=== PATIENT | female | born 1965 | race Caucasian/White ===

== ENCOUNTER → 2019-06-19 15:56 | Outpatient (CLI) | payer BC, SELFPAY ==
--- NOTE | ~2019-06-19 | MM_ITS ---
EXAMINATION: MM screening [facility] BI w [facility] HISTORY: Screening mammogram TECHNIQUE: Craniocaudal and mediolateral oblique 3-D tomosynthesis images were obtained and synthetic 2-D images were generated. CAD analysis was submitted and interpreted. COMPARISON: No prior mammogram is available for comparison at this institution. BREAST PARENCHYMAL COMPOSITION: There are scattered areas of fibroglandular density. FINDINGS: At least several scattered right breast masses are suggested, measuring up to approximately 12 mm maximal dimension. Diagnostic right mammogram and right breast ultrasound examination are joann mmended. Otherwise there is no evidence of suspicious mass, calcification, or architectural distortion to sugg est malignancy in either breast. There has been no other suspicious interval change. IMPRESSION: 1. Right breast masses 2. Diagnostic right mammogram and right breast ultrasound examination are recommended. BI-RADS Category 0: Incomplete: Needs additional imaging evaluation. Reviewed, dictated and finalized at location A. IMPRESSION: 1. Right breast masses 2. Diagnostic right mammogram and right breast ultrasound examination are recom mended. BI-RADS Category 0: Incomplete: Needs additional imaging evaluation.
== END ==
PROVIDERS: PCP Family Medicine; Visit Provider Obstetrics & Gynecology
DX: Z12.31 Encounter for screening mammogram for malignant neoplasm of breast (principal); R92.8 Other abnormal and inconclusive findings on diagnostic imaging of breast
CPT/HCPCS: 77063; 77067

== ENCOUNTER 2019-06-26 08:15 | Outpatient (CLI) | payer BC, SELFPAY ==
--- NOTE | ~2019-06-26 | MMUS_ITS ---
EXAMINATION: MM diagnostic mammo unilat RT, US breast RT limited HISTORY: Right breast masses on screening mammogram TECHNIQUE: Additional 3-D tomosynthesis images of the right breast were performed and synthetic 2-D i mages were generated. CAD analysis was submitted and interpreted. High resolution limited right breas t ultrasound was performed. COMPARISON: 06/19/2019 FINDINGS: MAMMOGRAPHIC FINDINGS: There is a 12 mm oval, obscured, low density mass in the anterior third of the breast at the 8:00 loc ation 3 cm from the nipple. There is a 10 mm round mass in the region of the axilla. No definite ayan tional masses persist with spot compression. No suspicious architectural distortion or calcification are identified. ULTRASOUND: There is a 1.3 cm cyst at the 9:00 location 3 cm from the nipple corresponding to the anterior breast mass. A benign-appearing lymph node is seen at the 10:00 location 9 cm from the nipple corresponding to the far posterior/axillary mass identified. IMPRESSION: 1. No mammographic or sonographic evidence of malignancy. 2. Recommend routine screening mammography in one year. BI-RADS Category 2: Benign finding(s). Reviewed, dictated and finalized at location A. IMPRESSION: 1. No mammographic or sonographic evidence of malignancy. 2. Recommend routine screening mammography in one year. BI-RADS Category 2: Benign finding(s).
== END 2019-06-26 08:16 ==
LOC: MICIMG 08:15
PROVIDERS: Visit Provider Obstetrics & Gynecology
DX: R92.8 Other abnormal and inconclusive findings on diagnostic imaging of breast (principal)
CPT/HCPCS: 76642; 77065

== ENCOUNTER 2019-10-12 09:25 | Emergency (ER) | payer BC, SELFPAY ==
[2019-10-12 09:48] VITALS: BP 139/81; PULSE 83; RESP 16; TEMP 37.3; O2SAT 99
--- NOTE | 2019-10-12 10:06 | ED.GENADULT ---
HPI - General Adult General Chief complaint: Extremity Injury, Lower Stated complaint: Foot pain Time Seen by Provider: 10/12/19 10:07 Source: patient and RN notes reviewed Mode of arrival: ambulatory Limitations: no limitations History of Present Illness HPI narrative: This is a 54 years old female presents to the office for an evaluation of foot pain for four to five days. Pain described as cramping. Pain woke up her up from sleep; which she took Mg and K pills with no relief. Denies injury/trauma prior to pain. She is diabetic with last A1C was 10 (about six months ago). Admits to history of intermittent charley horse/leg cramp but not as bad as this time. Denies history of neuropathy. Denies history of DVT. She is not a smoker. Denies recent surgery. Related Data Home Medications Medication Instructions Recorded Confirmed glimepiride [Amaryl] 1 mg PO DAILY 10/12/19 10/12/19 levonorgestrel [Mirena] 1 device INTRAUTERINE ONCE 10/12/19 10/12/19 metformin [Glucophage] 850 mg PO DAILY 10/12/19 10/12/19 methylphenidate HCl [Concerta] 36 mg PO DAILY 10/12/19 10/12/19 pantoprazole [Protonix] 40 mg PO DAILY 10/12/19 10/12/19 simvastatin [Zocor] 20 mg PO DAILY 10/12/19 10/12/19 Allergies Allergy/AdvReac Type Severity Reaction Status Date / Time mold Allergy Unknown ITCHY Verified 10/12/19 10:01 Review of Systems Review of Systems: Narrative: CONSTITUTIONAL: Denies fever ENT: Denies congestion CARDIOVASCULAR: Denies chest pain, palpitation RESPIRATORY: Denies dyspnea GASTROINTESTINAL: Denies abdominal pain, nausea, vomiting, diarrhea. SKIN: Denies rash/lesions MUSCULOSKELETAL:Reports right leg pain after leg cramp that she experienced a couple days ago. Pain began the sold of her foot and travel up her calf and as high as hip regions. NEUROLOGIC: Denies lightheaded/numbness/dizziness. All other systems reviewed are negative, except as documented in HPI. [facility] Past Medical History Medical History (Updated 10/12/19 @ 11:21 by DEX Ortiz) Diabetic acidosis, type II History of fatty infiltration of liver HLD (hyperlipidemia) Social History Social History Gender identity (if verbalized by the patient): Female Comments At time of signature, I agree with nursing past medical, surgical, social and family history. There is no relevant family history pertinent to the presenting complaint. Exam Narrative: Exam Narrative: GENERAL: This is a well-nourished, well-developed patient, in no apparent distress. CARDIOVASCULAR: Regular rate and rhythm without murmurs, gallops, or rubs. RESPIRATORY: Clear to auscultation. Breath sounds equal bilaterally. No wheezes, rales, or rhonchi. GASTROINTESTINAL: Abdomen soft, non-tender, nondistended. Bowel sounds are active. No hepato-splenomegaly, or palpable masses. No guarding. SKIN: warm, intact with no suspicious lesions or rash, good texture and turgor. NEURO: awake, alert, and oriented to person, place and time. There were no obvious focal neurologic abnormalities. Steady gait EXTREMITIES: Normal range of motion. No edema. No calf tenderness. Negative Homans sign bilaterally. No callus/corn noted. Right heel noted tenderness with palpation. Joints grossly intact. Skin intact. BACK: Nontender without deformity or crepitance. No flank tenderness. Negat SLRs. Dominick Coma Scale Eye Opening: Spontaneous 4 Collyer Coma Scale Motor: Obeys Commands 6 Dominick Coma Scale Verbal: Oriented 5 Course Vital Signs Vital signs: Vital Signs Temperature 99.2 F 10/12/19 09:48 Pulse Rate 83 10/12/19 09:48 Respiratory Rate 16 10/12/19 09:48 Blood Pressure 139/81 10/12/19 09:48 Pulse Oximetry 99 10/12/19 09:48 Temperature 99.2 F 10/12/19 09:48 Pulse Rate 83 10/12/19 09:48 Respiratory Rate 16 10/12/19 09:48 Blood Pressure 139/81 10/12/19 09:48 Pulse Oximetry 99 10/12/19 09:48 Medical D
== END 2019-10-12 10:34 | disposition home or self-care (01) ==
PROVIDERS: Emergency Provider Nurse Practitioner; PCP Family Medicine
DX: M79.671 Pain in right foot (principal); E11.10 Type 2 diabetes mellitus with ketoacidosis without coma; Z79.84 Long term (current) use of oral hypoglycemic drugs; E78.5 Hyperlipidemia, unspecified
CPT/HCPCS: 99213; G0463

== ENCOUNTER 2020-03-05 08:45 | Outpatient (CLI) | payer BC, SELFPAY ==
--- NOTE | ~2020-03-05 | XR_ITS ---
EXAMINATION: XR knee LT min 4V DATE: 03/05/2020 09:15 INDICATION: Left knee pain. TECHNIQUE: 4 views of left knee were obtained. COMPARISON: None. FINDINGS: Bone alignment is normal. No fracture. There is mild tricompartmental osteoarthritis. There is a moderate-sized knee joint effusion. IMPRESSION: 1. Mild left knee osteoarthritis. 2. Moderate-sized left knee joint effusion. Reviewed, dictated and finalized at location B. TEAM COORDINATOR SCHEDULER
== END 2020-03-05 08:46 ==
PROVIDERS: PCP Family Medicine; Visit Provider Family Medicine
DX: M17.12 Unilateral primary osteoarthritis, left knee (principal); M25.462 Effusion, left knee
CPT/HCPCS: 73564

== ENCOUNTER 2022-09-16 19:16 | Emergency (ER) | payer BC, SELFPAY ==
--- NOTE | ~2022-09-16 | XR_ITS ---
EXAMINATION: XR chest 1V portable Exam Date/Time: 09/16/2022 20:07 CDT HISTORY: leg pain, DIABETES, HTN Comparison: None. RESULT: Lines, tubes, and devices: None. Lungs and pleura: Clear. Cardiomediastinal silhouette: Normal. Other: No acute osseous or upper abdominal finding. IMPRESSION: No acute cardiopulmonary process. Reviewed, dictated and finalized at location K.
[2022-09-16 19:33] VITALS: BP 160/99; PULSE 94; RESP 18; TEMP 36.3; O2SAT 100
--- NOTE | 2022-09-16 19:42 | ED.EXTPRO ---
HPI - Extremity Problem General Chief complaint: Extremity Problem,Nontraumatic Stated complaint: possible blood clot R leg Time Seen by Provider: 09/16/22 19:39 Source: patient and family Mode of arrival: ambulatory Limitations: no limitations History of Present Illness HPI Narrative: Patient is 57 years old white female presented to the ED with right leg swelling and numbness started 3 days ago. 4 days ago patient had a lot of work at the [employer] with a lot of bending, lifting and kneeling down. She denies any trauma, fever, chills, nausea, vomiting, chest pain, shortness of breath. Related Data Home Medications Medication Instructions Recorded Confirmed levonorgestrel 21 mcg/24 hours (8 1 device intrauterine ONCE 10/12/19 10/12/19 yrs) 52 mg intrauterine device (Mirena) pantoprazole 40 mg tablet,delayed 40 mg PO DAILY 10/12/19 10/12/19 release (Protonix) simvastatin 20 mg tablet (Zocor) 20 mg PO DAILY 10/12/19 10/12/19 Allergies Allergy/AdvReac Type Severity Reaction Status Date / Time mold Allergy Unknown ITCHY Verified 09/16/22 19:36 Review of Systems Review of Systems: All systems reviewed & are unremarkable except as noted in HPI and below PMFSH Past Medical History Medical History Acid reflux Attention-deficit hyperactivity disorder, predominantly inattentive type Essential (primary) hypertension History of fatty infiltration of liver Hyperlipidemia, unspecified Personal history of colonic polyps Type 2 diabetes mellitus without complications Surgical History Surgical History History of rhinoplasty 1999 History of stress incontinence procedure using tension free vaginal tape 2010 Tubal ligation status 1995 Family History Family History Father Diabetes mellitus Heart disease Hypertension Mother Heart disease Hypertension Diabetes mellitus Daughter Rheumatoid arthritis Grandparent , Paternal grandfather age 50 of a heart attack Acute myocardial infarction Social History Social History Smoking status: Never smoker Gender identity (if verbalized by the patient): Female Exam Narrative: General appearance: Well-developed, well-nourished Skin: Normal color Neck: Supple, nontender Chest and respiratory: Airway patent, no respiratory distress, no accessory muscle use Heart: Regular rate/rhythm Abdomen: Soft, nontender, no organomegaly, quiet bowel sounds Vascular: Normal peripheral pulses, normal capillary refill. Musculoskeletal: Normal range of motion, nontender back, right lower extremity showed no edema, slight diffuse tenderness, no bruises, no rash Neurologic: Alert and oriented ?3, BASKET FILLER is normal as tested, no gross motor deficit, negative straight leg raising test Course Reevaluation(s) Reevaluation #1: No new changes compared to on arrival to the ED Date: 09/16/22 Time: 21:00 Vital Signs Vital signs: Vital Signs Temperature 36.3 C L 09/16/22 19:33 Pulse Rate 94 09/16/22 19:33 Respiratory Rate 18 09/16/22 19:33 Blood Pressure 160/99 H 09/16/22 19:33 Pulse Oximetry 100 09/16/22 19:33 Oxygen Delivery Room Air 09/16/22 19:33 Temperature 36.3 C L 09/16/22 19:33 Pulse Rate 94 09/16/22 19:33 Respiratory Rate 18 09/16/22 19:33 Blood Pressure 160/99 H 09/16/22 19:33 Pulse Oximetry 100 09/16/22 19:33 Oxygen Delivery Room Air 09/16/22 19:33 MDM - Extremity (Nontraumatic) MDM Narrative Medical decision
--- NOTE | 2022-09-16 19:43 | ECG_ITS ---
Measurements Intervals [place] Rate: 68 P: 3 SD: 164 QRS: 18 QRSD: 93 T: 22 QT: 390 QTc: 417 Interpretive Statements SINUS RHYTHM NORMAL ELECTROCARDIOGRAM NO PREVIOUS ECG AVAILABLE FOR COMPARISON Electronically Signed On 09-17-2022 8:17:39 CDT by Mesfin Laird M.D.
[2022-09-16 20:15] LABS: Basophils Absolute Auto 0.1 K/mm3 (0.0-0.1); Basophils Percent Auto 1.2 % (0.2-1.2); Eosinophils Absolute Auto 0.3 K/mm3 (0-0.3); Eosinophils Percent Auto 3.3 % (0-4.4); Hematocrit 40.3 % (37.0-47.0); Hemoglobin 13.4 g/dL (12.0-15.0); Immature Granulocyte Absolute 0.03 K/mm3 (0.00-0.031); Immature Granulocyte Percent A 0.3 % (0-0.5); Lymphocytes Absolute Auto 2.78 K/mm3 (0.9-3.2); Lymphocytes Percent Auto 30.4 % (18.3-44.2); Mean Corpuscular HGB Conc 33.3 g/dl (32-36); Mean Corpuscular Hemoglobin 29.6 pg (26-34); Mean Platelet Volume 10.6 fl (7.4-10.4); Monocytes Absolute Auto 0.6 K/mm3 (0.1-0.6); Monocytes Percent Auto 6.2 % (2.6-8.5); Neutrophils Absolute Auto 5.4 K/mm3 (1.3-6.7); Neutrophils Percent Auto 58.6 % (45.5-73.1); Platelet Count Result 301 k/mm3 (150-375); Red Blood Count 4.53 M/mm3 (4.2-5.4); Red Cell Distribution Width 12.4 % (11.5-14.5); White Blood Count 9.2 K/mm3 (4.5-10.0)
[2022-09-16 20:26] LABS: Alanine Aminotransferase 32 U/L (6-35); Albumin Level 3.9 g/dL (3.5-5.1); Alkaline Phosphatase 71 U/L (38-126); Anion Gap 5 mmol/L (8-16); Aspartate Amino Transferase 32 U/L (14-36); Bilirubin,Total 0.3 mg/dL (0.2-1.3); Blood Urea Nitrogen 16 mg/dL (7-17); Calcium 8.8 mg/dL (8.4-10.2); Carbon Dioxide 30 mmol/L (22-30); Chloride 99 mmol/L (98-107); Estimated CRCL calculation 96 ml/min; Estimated Glomerular Filt Rate > 60; Glucose 169 mg/dL (65-110); Potassium 3.7 mmol/L (3.4-5.0); Sodium 134 mmol/L (137-145)
[2022-09-16 20:31] LABS: D Dimer 0.31 ug/mL (<0.48)
[2022-09-16 20:34] LABS: NT Pro B Type Natriuretic Pept < 20 pg/mL (19.9-100)
[2022-09-16 21:20] VITALS: BP 145/90; PULSE 78; RESP 20; O2SAT 100
== END 2022-09-16 21:25 | disposition home or self-care (01) ==
PROVIDERS: Emergency Provider Emergency Medicine; PCP Family Medicine
DX: M79.604 Pain in right leg (principal); I10 Essential (primary) hypertension; E78.5 Hyperlipidemia, unspecified; E11.9 Type 2 diabetes mellitus without complications
CPT/HCPCS: 36415; 71045; 80053; 83880; 85025; 85380; 93005; 99283

== ENCOUNTER 2022-09-19 15:39 | Outpatient (CLI) | payer BC, SELFPAY ==
--- NOTE | ~2022-09-19 | XR_ITS ---
EXAM: XR lumbar spine min 4V DATE: 09/19/2022 16:29 HISTORY: M25.551 - Pain in right hip . COMPARISON: None available. FINDINGS: Mild lumbar scoliosis. IUD projecting over the pelvis. No pars defect. Exaggerated lumbar l ordosis. Incidental note of degenerative change at T9-10. Moderate disc space narrowing and marginal osteophytosis at L1-2. Mild disc space narrowing at L4-5. Mild marginal osteophytosis at L2-3 and L3- 4. Moderate facet arthropathy at L5-S1 bilaterally. 5 nonrib-bearing lumbar-type vertebral bodies. Pe dicles intact. Normal vertebral body alignment. Mild anterior wedge deformity at the thoracolumbar ju nction, presumably physiologic. No fracture or dislocation. Osteoarthritic changes in the bilateral S I joints. IMPRESSION: Multilevel lumbar degenerative disc disease, described above. Moderate facet arthropathy at L5-S1. Bilateral SI joint osteoarthritis. Reviewed, dictated and finalized at location K. IMPRESSION: Multilevel lumbar degenerative disc disease, described above. Moder ate facet arthropathy at L5-S1. Bilateral SI joint osteoarthritis.
--- NOTE | ~2022-09-19 | XR_ITS ---
EXAM: XR hip RT min 2V DATE: 09/19/2022 16:29 HISTORY: M25.551 - Pain in right hip . COMPARISON: None available. FINDINGS: Normal mineralization. No fracture or dislocation. No lytic or blastic lesion. Lumbar dege nerative disc disease and facet arthropathy. IUD projecting over the pelvis. Mild degenerative change s in the right SI joint, pubic symphysis, and right hip. No erosion or periosteal change. Soft tissue s within normal limits. IMPRESSION: Mild right hip and SI joint osteoarthritis. Mild osteitis pubis. Reviewed, dictated and finalized at location K.
== END 2022-09-19 15:40 ==
LOC: MICIMG 15:41
PROVIDERS: PCP Family Medicine; Visit Provider Family Medicine
DX: M16.11 Unilateral primary osteoarthritis, right hip (principal); M51.36 Other intervertebral disc degeneration, lumbar region; M47.818 Spondylosis without myelopathy or radiculopathy, sacral and sacrococcygeal region
CPT/HCPCS: 72110; 73502

== ENCOUNTER 2023-10-05 18:19 | Emergency (ER) | payer BC, SELFPAY ==
[2023-10-05] VITALS (30 sets, daily range): BP systolic 142–176; BP diastolic 79–90; PULSE 90–123; RESP 15–26; TEMP 36.6; O2SAT 94–100
--- NOTE | ~2023-10-05 | XR_ITS ---
EXAMINATION: XR chest 2V DATE: 10/05/2023 19:00 INDICATION: Jaw pain. Hypertension. TECHNIQUE: Frontal and lateral views of the chest were obtained. COMPARISON: Chest single view 09/16/2022 FINDINGS: There is no pneumonia, pleural effusion, or pneumothorax. The heart size is normal. IMPRESSION: 1. No acute cardiopulmonary disease. Reviewed, dictated and finalized at location E.
--- NOTE | 2023-10-05 18:22 | ECG_ITS ---
Test Date: 2023-10-05 18:25:46 Measurements Intervals [place] Rate: 117 P: 27 NC: 142 QRS: 3 QRSD: 87 T: 58 QT: 320 QTc: 447 Interpretive Statements SINUS TACHYCARDIA CONSIDER ANTERIOR INFARCT, AGE INDETERMINATE CONSIDER INFERIOR INFARCT, AGE INDETERMINATE BASELINE ARTIFACT- I, II, III, AVR, AVL, AVF, V1 ABNORMAL ECG No previous ECG available for comparison Electronically Signed On 10-05-2023 20:42:22 CDT by Sonny Aguilar D.O.
--- NOTE | 2023-10-05 18:56 | PC.NURSE ---
patient took (4) 81mg ASA prior to arrival
[2023-10-05 18:59] LABS: Basophils Absolute Auto 0.1 K/mm3 (0.0-0.1); Basophils Percent Auto 1.2 % (0.2-1.2); Eosinophils Absolute Auto 0.2 K/mm3 (0-0.3); Eosinophils Percent Auto 2.1 % (0-4.4); Hematocrit 41.3 % (37.0-47.0); Hemoglobin 14.3 g/dL (12.0-15.0); Immature Granulocyte Absolute 0.03 K/mm3 (0.00-0.031); Immature Granulocyte Percent A 0.3 % (0-0.5); Lymphocytes Absolute Auto 2.41 K/mm3 (0.9-3.2); Lymphocytes Percent Auto 26.4 % (18.3-44.2); Mean Corpuscular HGB Conc 34.6 g/dl (32-36); Mean Corpuscular Hemoglobin 30.4 pg (26-34); Mean Corpuscular Volume 87.9 fl (80-100); Mean Platelet Volume 10.8 fl (7.4-10.4); Monocytes Absolute Auto 0.5 K/mm3 (0.1-0.6); Monocytes Percent Auto 5.3 % (2.6-8.5); Neutrophils Absolute Auto 5.9 K/mm3 (1.3-6.7); Neutrophils Percent Auto 64.7 % (45.5-73.1); Platelet Count Result 290 k/mm3 (150-375); Red Cell Distribution Width 12.1 % (11.5-14.5); White Blood Count 9.1 K/mm3 (4.5-10.0)
[2023-10-05 19:09] LABS: Alanine Aminotransferase 29 U/L (6-35); Albumin Level 4.3 g/dL (3.5-5.1); Alkaline Phosphatase 72 U/L (38-126); Anion Gap 13 mmol/L (4-12); Aspartate Amino Transferase 34 U/L (14-36); Bilirubin,Total 0.4 mg/dL (0.2-1.3); Blood Urea Nitrogen 16 mg/dL (7-17); Calcium 9.2 mg/dL (8.4-10.2); Carbon Dioxide 23 mmol/L (22-30); Chloride 98 mmol/L (98-107); Estimated CRCL calculation 98 ml/min; Estimated Glomerular Filt Rate > 60; Glucose 314 mg/dL (65-110); Lipase 213 U/L (23-300); Potassium 3.5 mmol/L (3.4-5.0); Sodium 134 mmol/L (137-145)
[2023-10-05 19:10] LABS: Prothrombin Time 12.9 Seconds (11.1-14.7)
[2023-10-05 19:11] LABS: Partial Thromboplastin Time 24.1 Seconds (22.3-36.8)
[2023-10-05 19:20] LABS: Troponin I < 0.012 ng/mL (0.000-0.034)
--- NOTE | 2023-10-05 20:43 | ECG_ITS ---
Test Date: 2023-10-05 20:51:07 Measurements Intervals [place] Rate: 102 P: 12 ME: 151 QRS: 5 QRSD: 86 T: 32 QT: 343 QTc: 447 Interpretive Statements SINUS TACHYCARDIA CONSIDER ANTERIOR INFARCT, AGE INDETERMINATE CONSIDER INFERIOR INFARCT, AGE INDETERMINATE BASELINE ARTIFACT- I, II, III, AVR, AVL, AVF ABNORMAL ECG Compared to ECG 10/05/2023 18:25:46 HEART RATE HAS DECREASED Electronically Signed On 10-06-2023 06:42:04 CDT by Sonny Aguilar D.O.
[2023-10-05] MEDS: SODIUM CHLORIDE 0.9% IV 1,000 ML 999 ML IV CONT (20:57)
[2023-10-05] MEDS: KETOROLAC 30 MG/ML VIAL (*BKC) IV PUSH (20:57)
[2023-10-05] MEDS: ONDANSETRON INJ 4 MG/2 ML VIAL IV PUSH (20:57)
[2023-10-05 21:18] LABS: Troponin I < 0.012 ng/mL (0.000-0.034)
--- NOTE | 2023-10-05 22:04 | ED.GENADULT ---
HPI - General Adult General Chief complaint: Recheck/Abnormal Lab/Rx Stated complaint: high bp Time Seen by Provider: 10/05/23 19:03 History of Present Illness HPI narrative: Patient is a 58-year-old female who presents ER with headache. Aching. Associated with jaw discomfort. No fevers or chills or sweats. No trauma. Reports that she then starting a blood pressure and was becoming more elevated which made her concerned. No chest pain or chest pressure. No difficulty breathing. No additional concerns. Patient is diabetic. She missed a dose medication last night. Related Data Home Medications Medication Instructions Recorded Confirmed levonorgestrel 21 mcg/24 hr (up to 1 device intrauterine ONCE 10/12/19 08/01/23 8 years) 52 mg intrauterine device (Mirena) Allergies Allergy/AdvReac Type Severity Reaction Status Date / Time mold Allergy Unknown ITCHY Verified 10/05/23 18:24 Review of Systems Review of Systems: All systems reviewed & are unremarkable except as noted in HPI and below Constitutional: Constitutional: Reports no additional constitutional complaints ENT: Reports system reviewed and no additional complaints, except as documented Cardiovascular: Cardiovascular: Reports no additional cardiovascular complaints Respiratory: Respiratory: Reports no additional respiratory complaints Neurologic: Reports headache(s), Denies focal weakness and Denies numbness PMFSH Past Medical History Medical History Acid reflux Attention-deficit hyperactivity disorder, predominantly inattentive type Essential (primary) hypertension History of fatty infiltration of liver Hyperlipidemia, unspecified Personal history of colonic polyps Type 2 diabetes mellitus without complications Surgical History Surgical History History of rhinoplasty 1999 History of stress incontinence procedure using tension free vaginal tape 2010 Tubal ligation status 1995 Family History Family History Father Diabetes mellitus Heart disease Hypertension Mother Heart disease Hypertension Diabetes mellitus Daughter Rheumatoid arthritis Grandparent , Paternal grandfather age 50 of a heart attack Acute myocardial infarction Social History Social History (Updated 09/19/22 @ 14:43 by Alma Graham MA) Smoking status: Never smoker Alcohol intake: current Substance use: never Lack of Transportation: No Lack of Food: Never True Current Housing: I Have Housing Concerned About Future Housing: No Difficulty Paying Gas/Electric Bills: No Difficulty Paying for Meds: No Currently Unemployed: No Education: Trade/Vocational Certificate Difficulty w/ Childcare or Family Care: No Living arrangements: with family Occupation/Education: occupation Gender identity (if verbalized by the patient): Female Sexual Orientation (if Verbalized by the Patient): Straight or Heterosexual Spiritual care concerns: No Exam Narrative: GENERAL: Well-appearing, well-nourished, and in no acute distress. HEAD: Normocephalic, atraumatic. ENT: Mucous membranes moist. No dental abscess or tenderness. NECK: Supple. CHEST: Clear to auscultation. No respiratory distress. HEART: Regular rate and rhythm. Normal peripheral pulses. ABDOMEN: Soft, nontender, nondistended. EXTREMITIES: Normal range of motion. No edema. SKIN: Warm, dry, no rash. NEURO: . Alert and oriented x3. PSYCH: Normal mood and affect Course Course Emergency Course: Headache resolved with Toradol, viral panel negative. Labs normal with exception of elevated glucose. Appropriate discharge home. Vital Signs Vital signs: Vital Signs Temperature 97.9 F 10/05/23 18:20 Pulse Rate 123 H 10/05/23 18:20 Respiratory Rate 16 10/05/23 18:20 Blood Pressu
[2023-10-05 22:48] LABS: Influenza A QL RT-PCR Negative (Negative); Influenza B QL RT-PCR Negative (Negative); RSV RNA, RT-PCR Negative (Negative); SARS-CoV-2 RNA PCR Negative (Negative)
== END 2023-10-05 23:09 | disposition home or self-care (01) ==
PROVIDERS: Emergency Medicine; Emergency Provider Emergency Medicine; PCP Family Medicine
DX: R51.9 Headache, unspecified (principal); I10 Essential (primary) hypertension; E78.5 Hyperlipidemia, unspecified; E11.9 Type 2 diabetes mellitus without complications; K21.9 Gastro-esophageal reflux disease without esophagitis; Z97.5 Presence of (intrauterine) contraceptive device; Z86.010 Personal history of colon polyps; Z79.84 Long term (current) use of oral hypoglycemic drugs; Z79.85 Long-term (current) use of injectable non-insulin antidiabetic drugs; R00.0 Tachycardia, unspecified; R94.31 Abnormal electrocardiogram [ECG] [EKG]
CPT/HCPCS: 36415; 71046; 80053; 83690; 84484; 85025; 85610; 85730; 87637; 93005; 96361; 96374; 96375; 99284; J1885; J2405; J7030

== ENCOUNTER 2024-10-30 17:51 | Emergency (ER) | payer BC, SELFPAY ==
--- NOTE | 2024-10-30 17:55 | ED.FEMALEGU ---
HPI - Female Genitourinary General Chief complaint: Urogenital-Female Stated complaint: UTI Time Seen by Provider: 10/30/24 18:08 Source: patient Mode of arrival: ambulatory Limitations: no limitations History of Present Illness HPI Narrative: Corinne is a 59-year-old female patient presenting to the clinic today with complaints of possible UTI. She is reporting frequency and urgency with urination x10 days. Reports she was out of town last Monday when she develops symptoms and called her PCP and they sent her in a prescription for Bactrim for 7 days. States that this did not help her symptoms. Is also reporting some low back pain/side pain. Reports increased thirst. Denies any fevers, chills, body aches, or abdominal pain. Patient is diabetic. Related Data Allergies Allergy/AdvReac Type Severity Reaction Status Date / Time mold Allergy Unknown ITCHY Verified 10/30/24 17:59 Review of Systems Review of Systems: Pertinent positives per HPI. Patient denies any fever, chills, rash, headache, visual changes, dizziness, cough, runny nose, sore throat, shortness of breath, chest pain, palpitations, nausea, vomiting, diarrhea, constipation. [facility] Past Medical History Medical History Personal history of colonic polyps Acid reflux Attention-deficit hyperactivity disorder, predominantly inattentive type Hyperlipidemia, unspecified Essential (primary) hypertension Type 2 diabetes mellitus without complications History of fatty infiltration of liver Surgical History Surgical History History of stress incontinence procedure using tension free vaginal tape 2010 History of rhinoplasty 2000 Tubal ligation status 1995 Family History Family History Father Diabetes mellitus Heart disease Hypertension Mother Heart disease Hypertension Diabetes mellitus Daughter Rheumatoid arthritis Grandparent , Paternal grandfather age 50 of a heart attack Acute myocardial infarction Social History Social History Smoking status: Never smoker Alcohol intake: current Substance use: never Lack of Transportation: No Lack of Food: Never True Current Housing: I Have Housing Concerned About Future Housing: No Difficulty Paying Gas/Electric Bills: No Difficulty Paying for Meds: No Currently Unemployed: No Education: Trade/Vocational Certificate Difficulty w/ Childcare or Family Care: No Living arrangements: with family Occupation/Education: occupation Gender identity (if verbalized by the patient): Female Sexual Orientation (if Verbalized by the Patient): Straight or Heterosexual Spiritual care concerns: No Comments At the time of my signature, I reviewed and agree with the nursing past medical, surgical, social, and family history. There is no relevant family history pertinent to the patient complaint. Exam Narrative: General: Well-developed, well nourished, in no apparent distress. Head: Normocephalic, atraumatic. Cardio: Regular rate and rhythm, s1 and s2 normal, no murmur appreciated. Resp: Clear to auscultation bilaterally, no rhonchi, rales, wheezing or rubs. Abdomen: Soft, pliable, bowel sounds present in all quadrants, non-tender to palpation, no organomegly, no CVAT tenderness. Course Course Emergency Course: Portions of this record may have been created with voice recognition software. Level of Care: Express Care Visit Vital Signs Vital signs: Vital Signs Temperature 37.1 C 10/30/24 18:08 Pulse Rate 106 H 10/30/24 18:08 Respiratory Rate 18 10/30/24 18:08 Blood Pressure 135/69 10/30/24 18:08 Pulse Oximetry 98 10/30/24 18:08 Oxygen Delivery Room Air 10/30/24 18:08 Temperature 37.1 C 10/30/24 18:08 Pulse Rate 106 H 10/30/24 18:08 Respiratory Rate 18 10/30/24 18:08 Blood Pressure 135/69 10/30/24 18:08 Pulse Oximetry 98 10/30/24 18:08 Oxygen Delivery Room Air 10/30/24 18:08 Vital signs reviewed Transfer Transfered to: [facility] Transportation: Other (Private car) Transfer rationale: Uncontrolled hyperglycemia- type 2 diabetic Accepting physician: Mary Transfer comments: Private car MDM - Female Genitourinary MDM Narrative Medical decision making narrative: At the time of visit patient is resting comfortably on the exam table. Patient appears to be nontoxic. Complaints of possible UTI. She is reporting frequency and urgency with urination x10 days. Reports she was out of town last Monday when she develops symptoms and called her PCP and they sent her in a prescription for Bactrim for 7 days. States that this did not help her symptoms. Is also reporting some low back pain/side pain. Reports increased thirst. Denies any fevers, chills, body aches, or abdominal pain. Patient is diabetic. Urine dip was ordered. Bedside glucose test ordered. Patient has not taken her diabetic medication last night or today. Labs: Urinalysis dip shows 2+ glucose and trace of intact blood. Bedside glucose 499 in the clinic. Plan: Recommend transfer to the ED for type 2 diabetic with uncontrolled hyperglycemia. Patient agrees to transfer. Patient would like to go to [facility] emergency room. Report called to Loree- INFECTIOUS DISEASE TECHNICIAN for continuity of care and she accepts patient for transfer. Patient to go by private car. Differential Diagnosis Differential diagnosis: Likely urinary tract infection, cystitis and other (Hyperglycemia, uncontrolled type 2 diabetic) Lab Data Labs: Lab Results 10/30/24 10/30/24 Range/Units 18:07 18:16 POC Capillary Glucose 499 H (65-105) mg/dl POC Urine Color Yellow POC Urine Clarity Clear POC Urine pH 5.5 POC Ur Specif [place] 1.010 POC Urine Protein Negative (Negative) POC Ur Glucose (UA) 2+ (Negative) POC Urine Ketones Negative (Negative) POC Urine Blood Trace (Negative) POC Urine Nitrite Negative (Negative) POC Urine Bilirubin Negative (Negative) POC Urine Urobilinogen 0.2 POC U Leukocyte Esteras Negative (Negative) Discharge Plan Discharge Clinical Impression: Uncontrolled type 2 diabetes mellitus with hyperglycemia Patient Disposition: Home Condition: Stable Instructions: Antibiotic Form Patient Language: U[place] Prescriptions: No Action metformin 850 mg tablet 850 mg PO BID Qty: 180 1RF simvastatin [Zocor] 20 mg tablet 20 mg PO DAILY Qty: 90 1RF pantoprazole [Protonix] 40 mg tablet,delayed release (DR/EC) 40 mg PO DAILY Qty: 90 1RF glimepiride 1 mg tablet 1 mg PO DAILY Qty: 90 1RF losartan 50 mg tablet 50 mg PO DAILY Qty: 90 1RF methylphenidate HCl [Concerta] 54 mg tablet extended release 24hr 54 mg PO QAM Qty: 30 0RF Follow-up/Referrals: Ruy Palacio MD [Primary Care Provider] - Quality NIHSS Nursing Documentation ED NIHSS nursing documentation: reviewed/agree
[2024-10-30 18:08] VITALS: BP 135/69; PULSE 106; RESP 18; TEMP 37.1; O2SAT 98
[2024-10-30 18:10] LABS: EDUAAPPEAR Clear; EDUABILI Negative (Negative); EDUABLOOD Trace (Negative); EDUACOLOR1 Yellow; EDUAGLUCOSE 2+ (Negative); EDUAKETONE Negative (Negative); EDUALEUKO Negative (Negative); EDUANITRATE Negative (Negative); EDUAPH 5.5; EDUAPROTEIN Negative (Negative); EDUASPGRAVITY 1.010; EDUAUROBILI 0.2
== END 2024-10-30 18:36 | disposition short-term general hospital (02) ==
PROVIDERS: Emergency Provider Nurse Practitioner Family; PCP Family Medicine
DX: E11.65 Type 2 diabetes mellitus with hyperglycemia (principal); Z79.84 Long term (current) use of oral hypoglycemic drugs; F90.9 Attention-deficit hyperactivity disorder, unspecified type; I10 Essential (primary) hypertension; E78.5 Hyperlipidemia, unspecified; K21.9 Gastro-esophageal reflux disease without esophagitis
CPT/HCPCS: 81003; 82948; 87086; 99213; G0463

== ENCOUNTER 2024-10-30 18:44 | Emergency (ER) | payer BC, SELFPAY ==
--- NOTE | ~2024-10-30 | CT_ITS ---
CLINICAL INDICATION: Right lower quadrant pain COMPARISON: 07/09/2014. TECHNIQUE: Multiple contiguous axial images of the abdomen and pelvis were performed following the ad ministration of with 100 mL Omnipaque-350 intravenous contrast The dose-length product (DLP) was 402.02 mGy-cm. Automated exposure control and iterative reconstruction technique were employed. FINDINGS/OBSERVATIONS: Visualized lower thorax: The bilateral lung bases are clear. The heart is of normal size, without pericardial effusion. Small hiatal hernia is present. Liver: Interval development of hepatomegaly, when compared with the 2015 examination. The liver now measures 24 cm in cranial to caudal dimension, an interval change from prior. Redemonstration of fatty infiltration of the liver. Gallbladder and biliary system: The gallbladder is only minimally distended, and otherwise unremarkable. Pancreas: The pancreas enhances homogeneously without ductal dilatation. Spleen: The spleen enhances homogeneously and is not enlarged. Kidneys: The bilateral kidneys enhance symmetrically without hydronephrosis or renal calculi. Adrenal glands: Unremarkable. Gastrointestinal tract: Colonic diverticulosis without surrounding inflammatory change. Appendix: The air-filled appendix is of normal caliber (axial series, images 126 through 140) Vasculature: Unremarkable. Lymph nodes: No pathologically enlarged or morphologically suspicious lymph nodes within the retroperitoneum or at the root of the mesentery. Pelvic structures: The bladder is distended, and otherwise unremarkable. The uterus is anteverted and anteflexed and contains an IUD. Body wall and musculoskeletal: Small fat-containing umbilical hernia. No significant degenerative disease within the lower thoracic or lumbosacral spine. IMPRESSION: Interval development of hepatomegaly, when compared with previous examination performed 10 years lia ier. Redemonstration of fatty infiltration of the liver. No additional acute abnormalities detected within the abdomen or pelvis. Reviewed, dictated and finalized at location A. IMPRESSION: Interval development of hepatomegaly, when compared with previous examination p erformed 10 years earlier. Redemonstration of fatty infiltration of the liver. No additional acute abnormalities detected within the abdomen or pelvis.
--- OUTSIDE RECORDS SUMMARY | 2024-10-30 18:46 | XMS_ITS | Clinical Summary ---
Author Organization [facility] [place] Address [address] [place] [id number] Care Team Providers Care C Python Developer Name Role Phone Unavailable Primary Care Provider Unavailabl e Social History Tobacco Use Types Packs/Day Years Used Date Smoking Tobacco: Never Assessed Comments Unknown Sex and Gender Information Value Date Recorded Sex Assigned at Not on file Legal Sex Female 4:47 PM CDT Gender Identity Not on file Sexual Orientation Not on file Plan of Treatment Health Maintenance Due Date Last Done Comments Cervical Cancer Screening Pa p Smear (Age 30 to 64) Every 3 Years 1967 Colorectal Cancer Screening Colonoscopy (10 Years) 1967 Annual Physical 1970 Hepatitis C 1985 DTaP, Tdap and Td Vaccines ( 1 - Tdap) 1986 Hepatitis B Vaccines (1 of 3 - 19+ 3-dose series) 1986 Cervical Cancer Screening Pa p with HPV Testing (Age 30 to 64) Every 5 Years 1997 Cervical Cancer Screening with HPV 1997 Mammogram Screening 2007 Pneumococcal Vaccine: 50+ Ye ars (1 of 1 - PCV) 2017 Zoster Vaccines (1 of 2) 2017 COVID-19 Vaccine (2023-2 5 season) 2023 Meningococcal B Vaccine Aged Out No l onger eligible based on patient's age to complete this topic Meningococcal Vaccine Aged Out No joshua dania eligible based on patient's age to complete this topic RSV Immunizations Under 20 Months Aged Out No longer eligible based on patient's age to complete this topic
--- OUTSIDE RECORDS SUMMARY | 2024-10-30 18:46 | XMS_ITS | Clinical Summary ---
Author Organization [facility] [id number] Address [address] [place] [address] Care Team Providers Care Sales Service Representative Name Role Phone Ruy Palacio MD Primary Care Provider Social History Tobacco Use Types Packs/Day Years Used Date Smoking Tobacco: Never Assessed Personal Safety Answer Date Recorded Getting School Help Needed Not on file 06/10 Comments Unknown Sex and Gender Information Value Date Recorded Sex Assigned at Not on file Legal Sex Female 8:02 PM GAS STATION CLERK Gender Identity Not on file Sexual Orientation Not on file Last Filed Vital Signs Vital Sign Reading Time Taken Comments Blood Pressure 169/78 05/25/2012 10:52 AM GAS STATION CLERK Pulse 95 05/25/2012 10:52 AM GAS STATION CLERK Temperature 36.9 C (98.5 F) 05/25/2012 10:52 AM GAS STATION CLERK Respiratory Rate - - Oxygen Saturation 98% 05/25/2012 10:52 AM GAS STATION CLERK Inhaled Oxygen Concentration - - Weight 87.1 kg (192 lb) 05/25/2012 10:52 AM GAS STATION CLERK Height 167.6 cm (5' 6) 05/25/2012 10:52 AM GAS STATION CLERK Body Mass Index 30.99 05/25/2012 10:52 AM GAS STATION CLERK Plan of Treatment Health Maintenance Due Date Last Done Comments Breast Cancer Screening-Mammogram 1967 Cervical Cancer Screening 1967 Colon Cancer Screening-Colonoscopy 1967 Depression Screening 1967 Hepatitis C Screening 1967 Hepatitis B Screening 1985 Regular Well Visit/Exam 18-64 1985 Zoster Vaccine (1 of 2) 2017 Covid-19 Vaccine (3 2023-2 5 season) 2023 12/11/2020, 11/18/2020 Influenza Vaccine (#1) 2024 DTaP/Tdap/Td Vaccine (2 - Td or Tdap) 03/23/2029 03/23/2019 Pneumococcal vaccine <65 Aged Out No longer eligible based on patient's age to complete this topic Insurance [facility] [employer] Care Teams Sales Service Representative Relationship Specialty Start Date End Date Ruy aPlacio MD [address] [place] [id number] PCP - General Family Medicine 05/19/21
[2024-10-30 19:02] VITALS: BP 124/70; PULSE 102; RESP 18; TEMP 36.9; O2SAT 100
[2024-10-30 19:59] LABS: Hematocrit 41.4 % (37.0-47.0); Hemoglobin 13.6 g/dL (12.0-15.0); Immature Granulocyte Percent A 0.3 % (0-0.5); Lymphocytes Absolute Auto 1.74 K/mm3 (0.9-3.2); Mean Corpuscular HGB Conc 32.9 g/dl (32-36); Mean Corpuscular Hemoglobin 29.0 pg (26-34); Mean Corpuscular Volume 88.3 fl (80-100); Nucleated Red Blood Cells Absolute Auto 0.000 K/mm3 (0.0-0.012); Nucleated Red Blood Cells Perc 0.0 % (0.0-0.2); Platelet Count Result 309 k/mm3 (150-375); Red Blood Count 4.69 M/mm3 (4.2-5.4); White Blood Count 9.9 K/mm3 (4.5-10.0)
[2024-10-30 20:11] VITALS: BP 160/90; PULSE 101; RESP 21; O2SAT 99
[2024-10-30 20:12] LABS: Alanine Aminotransferase 23 U/L (6-35); Albumin Level 3.8 g/dL (3.5-5.1); Alkaline Phosphatase 88 U/L (38-126); Anion Gap 8 mmol/L (4-12); Aspartate Amino Transferase 25 U/L (14-36); Bilirubin,Total 0.3 mg/dL (0.2-1.3); Blood Urea Nitrogen 9 mg/dL (7-17); Calcium 9.2 mg/dL (8.4-10.2); Carbon Dioxide 29 mmol/L (22-30); Chloride 96 mmol/L (98-107); Estimated CRCL calculation 63 ml/min; Estimated Glomerular Filt Rate > 60; Glucose 407 mg/dL (65-110); Magnesium 1.5 mg/dL (1.6-2.3); Potassium 4.2 mmol/L (3.4-5.0); Sodium 133 mmol/L (137-145); Total Protein 7.2 g/dL (6.3-8.2)
[2024-10-30 20:15] VITALS: BP 147/83; PULSE 101; RESP 21; O2SAT 100
[2024-10-30 20:19] LABS: Add Urine Microscopic? NO; Appearance Urine Clear (Clear); Glucose Urine UA 3+ mg/dL (Negative); Leukocyte Esterase Ur Negative LEU/UL (Negative); Nitrate Urine Negative (Negative); Specific Grav Ur 1.038 (1.001-1.035)
--- NOTE | 2024-10-30 20:20 | ED_ITS ---
HPI - General Adult General Chief complaint: Recheck/Abnormal Lab/Rx <Lasha Staley MD - Last Filed: 11/28/24 12:02> Stated complaint: UTI, elevated blood sugar <Lasha Staley MD - Last Filed: 11/28/24 12:02> Time Seen by Provider: 10/30/24 20:10 <Lasha Staley MD - Last Filed: 11/28/24 12:02> History of Present Illness HPI narrative: This is a 59-year-old female diabetes presenting for urinary symptoms. Symptoms started last week. She was called a course of Bactrim which she completed with no effect on the UTI. She was seen in urgent care earlier today and found have a point of care glucose at 500. Patient says she does not take her metformin/gliperide consistently. She says she does not take them because they are inconvenient. Patient denies fevers, chills, nausea, vomiting or diarrhea. She does state she has some right lower quadrant abdominal tenderness. <Lasha Staley MD - Last Filed: 11/28/24 12:02> Related Data Allergies/adverse reactions: Allergies Allergy/AdvReac Type Severity Reaction Status Date / Time mold Allergy Unknown ITCHY Verified 11/08/24 15:09 <Lasha Staley MD - Last Filed: 11/28/24 12:02> [facility] Past Medical History Medical History: Medical History (Updated 11/08/24 @ 15:58 by Ruy Palacio MD) Type 2 diabetes mellitus with hyperglycemia, without long-term current use of insulin Hormone replacement therapy (postmenopausal) Personal history of colonic polyps Acid reflux Attention-deficit hyperactivity disorder, predominantly inattentive type Hyperlipidemia, unspecified Essential (primary) hypertension Type 2 diabetes mellitus without complications History of fatty infiltration of liver <Lasha Staley MD - Last Filed: 11/28/24 12:02> Surgical History Surgical History: Surgical History History of stress incontinence procedure using tension free vaginal tape 2010 History of rhinoplasty 1999 Tubal ligation status 1995 <Lasha Staley MD - Last Filed: 11/28/24 12:02> Family History Family History: Family History Father Diabetes mellitus Heart disease Hypertension Mother Heart disease Hypertension Diabetes mellitus Daughter Rheumatoid arthritis Grandparent , Paternal grandfather age 50 of a heart attack Acute myocardial infarction <Lasha Staley MD - Last Filed: 11/28/24 12:02> Social History Social History: Social History Smoking status: Never smoker Alcohol intake: current Substance use: never Lack of Transportation: No Lack of Food: Never True Current Housing: I Have Housing Concerned About Future Housing: No Difficulty Paying Gas/Electric Bills: No Difficulty Paying for Meds: No Currently Unemployed: No Education: Trade/Vocational Certificate Difficulty w/ Childcare or Family Care: No Living arrangements: with family Occupation/Education: occupation Gender identity (if verbalized by the patient): Female Sexual Orientation (if Verbalized by the Patient): Straight or Heterosexual Spiritual care concerns: No <Lasha Staley MD - Last Filed: 11/28/24 12:02> Exam 2 Narrative: APPEARANCE: No apparent distress. Head: atraumatic. EYES: EOMI, NOSE: Atraumatic NECK: Trachea midline RESPIRATORY: No increased rate of breathing clear to auscultation CARDIOVASCULAR: Tachycardic, no peripheral edema ABDOMINAL: Reported tenderness in right lower quadrant without guarding or rebound. No CVA tenderness. MUSCULOSKELETAl: No obvious deformities NEURO: Alert. Moving 4/4 extremities SKIN:: Warm, dry. Normal color PSYCHIATRIC: Normal affect <Lasha Staley MD - Last Filed: 11/28/24 12:02> Course Course Emergency Course: Patient signed out to me pending CT scan and viral swab . She remained persistently tachycardic even after 2 L IV fluids. TSH and D-dimer ordered. D-dimer mildly abnormal however YEARS Algorithm : No Clinical signs of DVT: No (assessed patient at bedside; she states sometimes ankles swell at night but no edema on physical exam) Hemoptysis: No PE is most likely diagnosis: No D-dimer >1000ng/mL: No Result: PE Excluded Heart rate between [address] as below, negative for acute process. Viral swab negative. In sum, etiology of patient's symptoms unclear but given labs and imaging, low suspicion for acute surgical process. DIscussed the uncertainty of diagnoses with patient and advised follow up. Provided Rx for Bentyl. <Hawa Whalen MD - Last Filed: 11/04/24 19:18> Vital Signs Vital signs: Vital Signs Temperature 98.4 F 10/30/24 19:02 Pulse Rate 102 H 10/30/24 19:02 Respiratory Rate 18 10/30/24 19:02 Blood Pressure 124/70 10/30/24 19:02 Pulse Oximetry 100 10/30/24 19:02 Oxygen Delivery Room Air 10/30/24 19:02 Temperature 98.4 F 10/30/24 19:02 Pulse Rate 105 H 10/31/24 00:30 Respiratory Rate 13 10/30/24 21:44 Blood Pressure 119/64 10/31/24 00:30 Pulse Oximetry 97 10/31/24 00:30 Oxygen Delivery Room Air 10/30/24 20:15 <Lasha Staley MD - Last Filed: 11/28/24 12:02> Vital Signs Temperature 98.4 F 10/30/24 19:02 Pulse Rate 102 H 10/30/24 19:02 Respiratory Rate 18 10/30/24 19:02 Blood Pressure 124/70 10/30/24 19:02 Pulse Oximetry 100 10/30/24 19:02 Oxygen Delivery Room Air 10/30/24 19:02 Temperature 98.4 F 10/30/24 19:02 Pulse Rate 105 H 10/31/24 00:30 Respiratory Rate 13 10/30/24 21:44 Blood Pressure 119/64 10/31/24 00:30 Pulse Oximetry 97 10/31/24 00:30 Oxygen Delivery Room Air 10/30/24 20:15 <Hawa Whalen MD - Last Filed: 11/04/24 19:18> Medical Decision Making MDM Narrative Medical decision making narrative: -Course: 59-year-old female presenting with urinary symptoms and elevated glucose. Urine is not indicative of infection. Patient is still having dysuria urgency and frequency. We will treat her with a 10 day course of doxycycline for urethritis. In regards the patient's blood sugar while it is elevated she does not have evidence of DKA or HHS. She has been given 2 L of fluid rehydration. Patient was complaining of headache was given Tylenol and Toradol with improvement of the headache. Patient signed out to the oncoming physician pending CT abdomen pelvis and re-evaluation of vital signs. -DDX includes but is not limited to: UTI, hyperglycemia diabetes, DKA/HHS, sepsis <Lasha Staley MD - Last Filed: 11/28/24 12:02> Vital Signs Vital Signs: Vital Signs Temperature 98.4 F 10/30/24 19:02 Pulse Rate 102 H 10/30/24 19:02 Respiratory Rate 18 10/30/24 19:02 Blood Pressure 124/70 10/30/24 19:02 Pulse Oximetry 100 10/30/24 19:02 Oxygen Delivery Room Air 10/30/24 19:02 Temperature 98.4 F 10/30/24 19:02 Pulse Rate 105 H 10/31/24 00:30 Respiratory Rate 13 10/30/24 21:44 Blood Pressure 119/64 10/31/24 00:30 Pulse Oximetry 97 10/31/24 00:30 Oxygen Delivery Room Air 10/30/24 20:15 <Lasha Staley MD - Last Filed: 11/28/24 12:02> Vital Signs Temperature 98.4 F 10/30/24 19:02 Pulse Rate 102 H 10/30/24 19:02 Respiratory Rate 18 10/30/24 19:02 Blood Pressure 124/70 10/30/24 19:02 Pulse Oximetry 100 10/30/24 19:02 Oxygen Delivery Room Air 10/30/24 19:02 Temperature 98.4 F 10/30/24 19:02 Pulse Rate 105 H 10/31/24 00:30 Respiratory Rate 13 10/30/24 21:44 Blood Pressure 119/64 10/31/24 00:30 Pulse Oximetry 97 10/31/24 00:30 Oxygen Delivery Room Air 10/30/24 20:15 <Hawa Whalen MD - Last Filed: 11/04/24 19:18> Lab Data Result diagrams: 10/30/24 19:53 10/30/24 19:53 <Lasha Staley MD - Last Filed: 11/28/24 12:02> Labs: Lab Results 10/30/24 10/30/24 10/30/24 Range/Units 19:21 19:53 20:12 WBC 9.9 (4.5-10.0) K/mm3 RBC 4.69 (4.2-5.4) M/mm3 Hgb 13.6 (12.0-15.0) g/dL Hct 41.4 (37.0-47.0) % MCV 88.3 (80-100) fl MCH 29.0 (26-34) pg MCHC 32.9 (32-36) g/dl RDW 12.0 (11.5-14.5) % Plt Count 309 (150-375) k/mm3 MPV 10.5 H (7.4-10.4) fl Immature Gran % (Auto) 0.3 (0-0.5) % Neut % (Auto) 73.7 H (45.5-73.1) % Lymph % (Auto) 17.5 L (18.3-44.2) % [place] % (Auto) 6.7 (2.6-8.5) % Eos % (Auto) 0.9 (0-4.4) % Baso % (Auto) 0.9 (0.2-1.2) % Lymph # (Auto) 1.74 (0.9-3.2) K/mm3 [place] # (Auto) 0.7 H (0.1-0.6) K/mm3 Eos # (Auto) 0.1 (0-0.3) K/mm3 Baso # (Auto) 0.1 (0.0-0.1) K/mm3 Abs Immat Gran (auto) 0.03 (0.00-0.031) K/mm3 Absolute Neuts (auto) 7.3 H (1.3-6.7) K/mm3 Absolute Nucleated RBC 0.000 (0.0-0.012) K/mm3 Nucleated RBC % 0.0 (0.0-0.2) % D-Dimer 0.63 H (<0.48) ug/mL Sodium 133 L (137-145) mmol/L Potassium 4.2 (3.4-5.0) mmol/L Chloride 96 L (98-107) mmol/L Carbon Dioxide 29 (22-30) mmol/L Anion Gap 8 (4-12) mmol/L BUN 9 D (7-17) mg/dL Creatinine 0.81 (0.7-1.0) mg/dL Estim Creat Clear Calc 63 ml/min Estimated GFR > 60 (59 - ) Glucose 407 H (65-110) mg/dL POC Capillary Glucose > 500 H* (65-105) mg/dl Calcium 9.2 (8.4-10.2) mg/dL Phosphorus 3.6 (2.5-4.5) mg/dL Magnesium 1.5 L (1.6-2.3) mg/dL Total Bilirubin 0.3 (0.2-1.3) mg/dL AST 25 (14-36) U/L ALT 23 (6-35) U/L Alkaline Phosphatase 88 (38-126) U/L Total Protein 7.2 (6.3-8.2) g/dL Albumin 3.8 (3.5-5.1) g/dL Beta-Hydroxybutyrate/Acetoacetate 0.08 (0.02-0.27) mmol/L TSH 1.630 (0.465-4.680) uIU/mL Urine Color Yellow (Yellow) Urine Appearance Clear (Clear) Urine pH 5.5 (5.0-9.0) Ur Specific [place] 1.038 H (1.001-1.035) Urine Protein Negative (Negative) mg/dL Urine Glucose (UA) 3+ H (Negative) mg/dL Urine Ketones Negative (Negative) mg/dL Ur Blood (Man) Negative (Negative) Urine Nitrate Negative (Negative) Urine Bilirubin Negative (Negative) Urine Urobilinogen 1.0 (<2.0) mg/dL Leukocyte Esterase Rfl Negative (Negative) REJI/UL Influenza A (RT-PCR) (Negative) Influenza B (RT-PCR) (Negative) RSV (RT-PCR) (Negative) SARS-CoV-2 RNA (RT-PCR) (Negative) 10/30/24 10/31/24 Range/Units 22:05 00:13 WBC (4.5-10.0) K/mm3 RBC (4.2-5.4) M/mm3 Hgb (12.0-15.0) g/dL Hct (37.0-47.0) % MCV (80-100) fl MCH (26-34) pg MCHC (32-36) g/dl RDW (11.5-14.5) % Plt Count (150-375) k/mm3 MPV (7.4-10.4) fl Immature Gran % (Auto) (0-0.5) % Neut % (Auto) (45.5-73.1) % Lymph % (Auto) (18.3-44.2) % [place] % (Auto) (2.6-8.5) % Eos % (Auto) (0-4.4) % Baso % (Auto) (0.2-1.2) % Lymph # (Auto) (0.9-3.2) K/mm3 [place] # (Auto) (0.1-0.6) K/mm3 Eos # (Auto) (0-0.3) K/mm3 Baso # (Auto) (0.0-0.1) K/mm3 Abs Immat Gran (auto) (0.00-0.031) K/mm3 Absolute Neuts (auto) (1.3-6.7) K/mm3 Absolute Nucleated RBC (0.0-0.012) K/mm3 Nucleated RBC % (0.0-0.2) % D-Dimer (<0.48) ug/mL Sodium (137-145) mmol/L Potassium (3.4-5.0) mmol/L Chloride (98-107) mmol/L Carbon Dioxide (22-30) mmol/L Anion Gap (4-12) mmol/L BUN (7-17) mg/dL Creatinine (0.7-1.0) mg/dL Estim Creat Clear Calc ml/min Estimated GFR (59 - ) Glucose (65-110) mg/dL POC Capillary Glucose 270 H (65-105) mg/dl Calcium (8.4-10.2) mg/dL Phosphorus (2.5-4.5) mg/dL Magnesium (1.6-2.3) mg/dL Total Bilirubin (0.2-1.3) mg/dL AST (14-36) U/L ALT (6-35) U/L Alkaline Phosphatase (38-126) U/L Total Protein (6.3-8.2) g/dL Albumin (3.5-5.1) g/dL Beta-Hydroxybutyrate/Acetoacetate (0.02-0.27) mmol/L TSH (0.465-4.680) uIU/mL Urine Color (Yellow) Urine Appearance (Clear) Urine pH (5.0-9.0) Ur Specific [place] (1.001-1.035) Urine Protein (Negative) mg/dL Urine Glucose (UA) (Negative) mg/dL Urine Ketones (Negative) mg/dL Ur Blood (Man) (Negative) Urine Nitrate (Negative) Urine Bilirubin (Negative) Urine Urobilinogen (<2.0) mg/dL Leukocyte Esterase Rfl (Negative) REJI/UL Influenza A (RT-PCR) Negative (Negative) Influenza B (RT-PCR) Negative (Negative) RSV (RT-PCR) Negative (Negative) SARS-CoV-2 RNA (RT-PCR) Negative (Negative) <Lasha Staley MD - Last Filed: 11/28/24 12:02> Lab Results 10/30/24 10/30/24 10/30/24 Range/Units 19:21 19:53 20:12 WBC 9.9 (4.5-10.0) K/mm3 RBC 4.69 (4.2-5.4) M/mm3 Hgb 13.6 (12.0-15.0) g/dL Hct 41.4 (37.0-47.0) % MCV 88.3 (80-100) fl MCH 29.0 (26-34) pg MCHC 32.9 (32-36) g/dl RDW 12.0 (11.5-14.5) % Plt Count 309 (150-375) k/mm3 MPV 10.5 H (7.4-10.4) fl Immature Gran % (Auto) 0.3 (0-0.5) % Neut % (Auto) 73.7 H (45.5-73.1) % Lymph % (Auto) 17.5 L (18.3-44.2) % [place] % (Auto) 6.7 (2.6-8.5) % Eos % (Auto) 0.9 (0-4.4) % Baso % (Auto) 0.9 (0.2-1.2) % Lymph # (Auto) 1.74 (0.9-3.2) K/mm3 [place] # (Auto) 0.7 H (0.1-0.6) K/mm3 Eos # (Auto) 0.1 (0-0.3) K/mm3 Baso # (Auto) 0.1 (0.0-0.1) K/mm3 Abs Immat Gran (auto) 0.03 (0.00-0.031) K/mm3 Absolute Neuts (auto) 7.3 H (1.3-6.7) K/mm3 Absolute Nucleated RBC 0.000 (0.0-0.012) K/mm3 Nucleated RBC % 0.0 (0.0-0.2) % D-Dimer 0.63 H (<0.48) ug/mL Sodium 133 L (137-145) mmol/L Potassium 4.2 (3.4-5.0) mmol/L Chloride 96 L (98-107) mmol/L Carbon Dioxide 29 (22-30) mmol/L Anion Gap 8 (4-12) mmol/L BUN 9 D (7-17) mg/dL Creatinine 0.81 (0.7-1.0) mg/dL Estim Creat Clear Calc 63 ml/min Estimated GFR > 60 (59 - ) Glucose 407 H (65-110) mg/dL POC Capillary Glucose > 500 H* (65-105) mg/dl Calcium 9.2 (8.4-10.2) mg/dL Phosphorus 3.6 (2.5-4.5) mg/dL Magnesium 1.5 L (1.6-2.3) mg/dL Total Bilirubin 0.3 (0.2-1.3) mg/dL AST 25 (14-36) U/L ALT 23 (6-35) U/L Alkaline Phosphatase 88 (38-126) U/L Total Protein 7.2 (6.3-8.2) g/dL Albumin 3.8 (3.5-5.1) g/dL Beta-Hydroxybutyrate/Acetoacetate 0.08 (0.02-0.27) mmol/L TSH 1.630 (0.465-4.680) uIU/mL Urine Color Yellow (Yellow) Urine Appearance Clear (Clear) Urine pH 5.5 (5.0-9.0) Ur Specific [place] 1.038 H (1.001-1.035) Urine Protein Negative (Negative) mg/dL Urine Glucose (UA) 3+ H (Negative) mg/dL Urine Ketones Negative (Negative) mg/dL Ur Blood (Man) Negative (Negative) Urine Nitrate Negative (Negative) Urine Bilirubin Negative (Negative) Urine Urobilinogen 1.0 (<2.0) mg/dL Leukocyte Esterase Rfl Negative (Negative) REJI/UL Influenza A (RT-PCR) (Negative) Influenza B (RT-PCR) (Negative) RSV (RT-PCR) (Negative) SARS-CoV-2 RNA (RT-PCR) (Negative) 10/30/24 10/31/24 Range/Units 22:05 00:13 WBC (4.5-10.0) K/mm3 RBC (4.2-5.4) M/mm3 Hgb (12.0-15.0) g/dL Hct (37.0-47.0) % MCV (80-100) fl MCH (26-34) pg MCHC (32-36) g/dl RDW (11.5-14.5) % Plt Count (150-375) k/mm3 MPV (7.4-10.4) fl Immature Gran % (Auto) (0-0.5) % Neut % (Auto) (45.5-73.1) % Lymph % (Auto) (18.3-44.2) % [place] % (Auto) (2.6-8.5) % Eos % (Auto) (0-4.4) % Baso % (Auto) (0.2-1.2) % Lymph # (Auto) (0.9-3.2) K/mm3 [place] # (Auto) (0.1-0.6) K/mm3 Eos # (Auto) (0-0.3) K/mm3 Baso # (Auto) (0.0-0.1) K/mm3 Abs Immat Gran (auto) (0.00-0.031) K/mm3 Absolute Neuts (auto) (1.3-6.7) K/mm3 Absolute Nucleated RBC (0.0-0.012) K/mm3 Nucleated RBC % (0.0-0.2) % D-Dimer (<0.48) ug/mL Sodium (137-145) mmol/L Potassium (3.4-5.0) mmol/L Chloride (98-107) mmol/L Carbon Dioxide (22-30) mmol/L Anion Gap (4-12) mmol/L BUN (7-17) mg/dL Creatinine (0.7-1.0) mg/dL Estim Creat Clear Calc ml/min Estimated GFR (59 - ) Glucose (65-110) mg/dL POC Capillary Glucose 270 H (65-105) mg/dl Calcium (8.4-10.2) mg/dL Phosphorus (2.5-4.5) mg/dL Magnesium (1.6-2.3) mg/dL Total Bilirubin (0.2-1.3) mg/dL AST (14-36) U/L ALT (6-35) U/L Alkaline Phosphatase (38-126) U/L Total Protein (6.3-8.2) g/dL Albumin (3.5-5.1) g/dL Beta-Hydroxybutyrate/Acetoacetate (0.02-0.27) mmol/L TSH (0.465-4.680) uIU/mL Urine Color (Yellow) Urine Appearance (Clear) Urine pH (5.0-9.0) Ur Specific [place] (1.001-1.035) Urine Protein (Negative) mg/dL Urine Glucose (UA) (Negative) mg/dL Urine Ketones (Negative) mg/dL Ur Blood (Man) (Negative) Urine Nitrate (Negative) Urine Bilirubin (Negative) Urine Urobilinogen (<2.0) mg/dL Leukocyte Esterase Rfl (Negative) REJI/UL Influenza A (RT-PCR) Negative (Negative) Influenza B (RT-PCR) Negative (Negative) RSV (RT-PCR) Negative (Negative) SARS-CoV-2 RNA (RT-PCR) Negative (Negative) <Hawa Whalen MD - Last Filed: 11/04/24 19:18> Imaging Data Radiologist's impression: IMPRESSION: Interval development of hepatomegaly, when compared with previous examination performed 10 years earlier. Redemonstration of fatty infiltration of the liver. No additional acute abnormalities detected within the abdomen or pelvis. < Hawa Whalen MD - Last Filed: 11/04/24 19:18> Discharge Plan Discharge Clinical Impression: Dysuria, Diabetes mellitus with hyperglycemia, Hepatomegaly, Fatty infiltration of liver, Urinary urgency, Urinary frequency, Glucosuria, Right sided abdominal pain <Lasha Staley MD - Last Filed: 11/28/24 12:02> Patient Disposition: Home <Lasha Staley MD - Last Filed: 11/28/24 12:02> Condition: Stable <Lasha Staley MD - Last Filed: 11/28/24 12:02> Instructions: Antibiotic Form, Non-Alcoholic Fatty Liver Disease (ED), Dysuria (ED), Abdominal Pain (ED), Diabetic Hyperglycemia (ED), Urinary Urgency and Frequency (DC) <Lasha Staley MD - Last Filed: 11/28/24 12:02> Additional Instructions: You were seen in the emergency department for high glucose. Please resume taking her diabetes medications. Your urine did not appear infected on our urinalysis. However please complete a course of doxycycline to see if that improves her symptoms. Please follow-up with your primary care physician in 3-5 days for further management. She develop any new or worsening symptoms return to the ED for re-evaluation. If you continue to experience urinary symptoms, you may benefit from seeing urology, referral below. <Lasha Staley MD - Last Filed: 11/28/24 12:02> Patient Language: Cambodian <Lasha Staley MD - Last Filed: 11/28/24 12:02> Prescriptions: No Action metformin 850 mg tablet 850 mg PO BID Qty: 180 1RF pantoprazole [Protonix] 40 mg tablet,delayed release (DR/EC) 40 mg PO DAILY Qty: 90 1RF losartan 50 mg tablet 50 mg PO DAILY Qty: 90 1RF simvastatin [Zocor] 20 mg tablet 20 mg PO DAILY Qty: 90 1RF Mounjaro 2.5 mg/0.5 mL pen injector 2.5 mg subcut WEEKLY Qty: 2 0RF Rx Instructions: for 4 weeks estradiol [Estrace] 1 mg tablet 1 mg PO DAILY Qty: 90 1RF medroxyprogesterone 5 mg tablet 5 mg PO DAILY Qty: 90 1RF methylphenidate HCl [Concerta] 54 mg tablet extended release 24hr 54 mg PO QAM Qty: 30 0RF glimepiride 1 mg tablet 1 mg PO DAILY Qty: 90 1RF <Lasha Staley MD - Last Filed: 11/28/24 12:02> Follow-up/Referrals: Ruy Palacio MD [Primary Care Provider] Jose Peters MD [Physician] <Lasha Staley MD - Last Filed: 11/28/24 12:02> Stand Alone Forms: Work/School Release IP <Lasha Staley MD - Last Filed: 11/28/24 12:02> Time of Disposition: 00:16 <Lasha Staley MD - Last Filed: 11/28/24 12:02> 00:16 <Hawa Whalen MD - Last Filed: 11/04/24 19:18>
[2024-10-30 20:23] LABS: Beta-Hydroxybutyrate/Acetoacetate 0.08 mmol/L (0.02-0.27)
--- OUTSIDE RECORDS SUMMARY | 2024-10-30 20:31 | XMS_ITS | Clinical Summary ---
Author Organization [facility] Address [address] [place] [id number] Care Team Providers Care Rock Worker Name Role Phone Unavailable Primary Care Provider [...]
--- OUTSIDE RECORDS SUMMARY | 2024-10-30 20:31 | XMS_ITS | Clinical Summary ---
Author Organization [facility] [address] Address [address] [place] [address] Care Team Providers Care Finance Insurance Manager Name Role Phone Ruy Palacio MD Primary Care Provider [phone] Social History Tobacco Use Types Packs/Day Years Used Date Smoking Tobacco: Never Assessed Personal Safety Answer Date Recorded Getting School Help Needed Not on file 06/10 Comments Unknown Sex and Gender Information Value Date Recorded Sex Assigned at Not on file Legal Sex Female 8:02 PM [employer] Gender Identity Not on file Sexual Orientation Not on file Last Filed Vital Signs Vital Sign Reading Time Taken Comments Blood Pressure 169/78 05/25/2012 10:52 AM [employer] Pulse 95 05/25/2012 10:52 AM [employer] Temperature 36.9 C (98.5 F) 05/25/2012 10:52 AM [employer] Respiratory Rate - - Oxygen Saturation 98% 05/25/2012 10:52 AM [employer] Inhaled Oxygen Concentration - - Weight 87.1 kg (192 lb) 05/25/2012 10:52 AM [employer] Height 167.6 cm (5' 6) 05/25/2012 10:52 AM [employer] Body Mass Index 30.99 05/25/2012 10:52 AM [employer] Plan of Treatment Health Maintenance Due Date [...] patient's age to complete this topic Insurance [facility] Care Teams Finance Insurance Manager Relationship Specialty Start Date End Date Ruy Palacio MD [address] [place] [id number] PCP - General Family Medicine 05/19/21
[2024-10-30] MEDS: MAGNESIUM SULF 2 GM/WATER 50ML 2 GM/50 ML BAG IVPB (20:38)
[2024-10-30] MEDS: SODIUM CHLORIDE 0.9% IV 2,000 ML 999 ML IV CONT (20:38)
[2024-10-30] MEDS: ACETAMINOPHEN 500 MG TABLET 1000 MG PO (21:17)
[2024-10-30] MEDS: KETOROLAC 15 MG/ML VIAL (*BKC) IV PUSH (21:17)
[2024-10-30 21:44] VITALS: BP 137/88; PULSE 108; RESP 13; O2SAT 96
[2024-10-30 22:51] LABS: Influenza A QL RT-PCR Negative (Negative); Influenza B QL RT-PCR Negative (Negative); RSV RNA, RT-PCR Negative (Negative); SARS-CoV-2 RNA PCR Negative (Negative)
[2024-10-30 23:43] LABS: Thyroid Stimulating Hormone 1.630 uIU/mL (0.465-4.680)
[2024-10-31 00:30] VITALS: BP 119/64; PULSE 105; O2SAT 97
== END 2024-10-31 00:33 | disposition home or self-care (01) ==
PROVIDERS: Emergency Medicine; Emergency Provider Student in an Organized Health Care Education/Training Program; PCP Family Medicine
DX: R10.813 Right lower quadrant abdominal tenderness (principal); E78.5 Hyperlipidemia, unspecified; I10 Essential (primary) hypertension; E11.9 Type 2 diabetes mellitus without complications; R30.0 Dysuria; E11.65 Type 2 diabetes mellitus with hyperglycemia; R16.0 Hepatomegaly, not elsewhere classified; K76.0 Fatty (change of) liver, not elsewhere classified; R39.15 Urgency of urination; Z20.822 Contact with and (suspected) exposure to COVID-19
CPT/HCPCS: 36415; 74177; 80053; 81003; 82010; 82948; 83735; 84100; 84443; 85025; 85380; 87637; 96365; 96366; 96375; 99284; A9270; J1885; J3475; J7030; Q9967